=== PATIENT | female | born 1990 | race Caucasian/White ===

== ENCOUNTER 2016-10-11 19:21 | Emergency (ER) | payer OTHER, MEDICAID ==
[~2016-10-11] VITALS: Ht 167.6 cm; Wt 58.7 kg
[2016-10-11 19:26] VITALS: BP 139/75; PULSE 66; RESP 16; TEMP 98; O2SAT 100
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
[2016-10-11] MEDS ORDERED: LEVO1TAB57 PO (21:08)
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
[2016-10-11] MEDS ORDERED: KETOROLAC TROMETHAMINE 60 MG/2 ML (IM) VIAL IM ONE (21:45)
[2016-10-11] MEDS ORDERED: ORPHENADRINE INJ 60 MG/2 ML AMP IM ONE (21:45)
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
[2016-10-11] MEDS ORDERED: IBUP800T23 PO (22:41)
[2016-10-11] MEDS ORDERED: BACL10TA PO (22:41)
== END 2016-10-11 23:05 | disposition home or self-care (01) ==
LOC: NEPK 19:21
DX: S16.1XXA Strain of muscle, fascia and tendon at neck level, initial encounter (principal); S39.012A Strain of muscle, fascia and tendon of lower back, initial encounter; V43.52XA Car driver injured in collision with other type car in traffic accident, initial encounter; Y92.414 Local residential or business street as the place of occurrence of the external cause
CPT/HCPCS: 72100; 72125; 84703; 96372; 99285; J1885; J2360